=== PATIENT | male | born 1970 | race Caucasian/White ===

== ENCOUNTER 2020-12-03 20:41 | Emergency (ER) | payer OTHER ==
[2020-12-03] MEDS ORDERED: IBUPROFEN600 MG PO (22:49)
== END 2020-12-03 22:59 | disposition home or self-care (01) ==
LOC: ER1 20:41
DX: S13.9XXA Sprain of joints and ligaments of unspecified parts of neck, initial encounter (principal); I10 Essential (primary) hypertension; V49.9XXA Car occupant (driver) (passenger) injured in unspecified traffic accident, initial encounter
CPT/HCPCS: 72125; 73080; 73610; 73630; 99284